=== PATIENT | male | born 1970 | race Caucasian/White ===

== ENCOUNTER 2019-02-28 07:37 | Day surgery (SDC) | payer OTHER ==
[2019-02-23 15:25] VITALS: BMI 30.8
[2019-02-28] MEDS ORDERED: LIDOCAINE HCL/PF 2% SDV 5ML VIAL ONE ×2 (08:19→08:56)
[2019-02-28] MEDS ORDERED: PROPOFOL 20 ML ONE ×2 (08:19)
[2019-02-28 09:31] VITALS: TEMP 98.1
[2019-02-28 10:04] VITALS: BP 136/90; PULSE 61
== END 2019-02-28 10:00 | disposition home or self-care (01) ==
LOC: FASU-ENDO 07:37
PROVIDERS: ATTEND Internal Medicine Gastroenterology
PROC: 0DJD8ZZ Inspection of Lower Intestinal Tract, Via Natural or Artificial Opening Endoscopic (ICD-10-PCS; principal; 2019-02-28 09:03)
DX: Z12.11 Encounter for screening for malignant neoplasm of colon (principal)